=== PATIENT | male | born 1995 ===

== ENCOUNTER 2022-05-15 02:06 | Emergency (ER) | payer OTHER ==
[2022-05-15] MEDS ORDERED: Alum Hydrox/Mag Hydrox/Simeth 30 ML, Lidocaine 2% 15 ML PO STA ×2 (03:31)
[2022-05-15 04:08] LABS: ESTIMATED GFR 106 mL/min (>60)
[2022-05-15] MEDS ORDERED: Famotidine 20 MG Tab PO STA (04:32)
== END 2022-05-15 05:10 | disposition home or self-care (01) ==
LOC: JD.ED 02:06
DX: K21.9 Gastro-esophageal reflux disease without esophagitis (principal); E66.9 Obesity, unspecified; Z88.6 Allergy status to analgesic agent; Z88.8 Allergy status to other drugs, medicaments and biological substances
CPT/HCPCS: 36415; 80053; 83690; 85025; 86140; 99284; A9270